=== PATIENT | male | born 1995 | race Caucasian/White ===

== ENCOUNTER 2021-08-17 01:15 | Emergency (ER) | payer MEDICAID ==
[~2021-08-17] VITALS: Ht 185.4 cm; Wt 90.7 kg
[2021-08-17 01:17] VITALS: BP 156/80
[2021-08-17] MEDS ORDERED: CEPH-588 PO (04:56)
[2021-08-17 05:02] VITALS: BP 114/49
== END 2021-08-17 05:03 | disposition home or self-care (01) ==
LOC: MED 01:15
DX: S80.211A Abrasion, right knee, initial encounter (principal); S09.90XA Unspecified injury of head, initial encounter; L03.115 Cellulitis of right lower limb; Z79.899 Other long term (current) drug therapy; Y04.2XXA Assault by strike against or bumped into by another person, initial encounter; Y93.89 Activity, other specified; Y92.511 Restaurant or cafe as the place of occurrence of the external cause; Y99.8 Other external cause status
CPT/HCPCS: 70450; 70486; 99284

== ENCOUNTER 2021-08-17 22:47 | Emergency (ER) | payer MEDICAID ==
[~2021-08-17 22:47] MED LIST: CEPH-588 PO
== END 2021-08-17 22:59 | disposition home or self-care (01) ==
LOC: MED 22:47
DX: Z02.89 Encounter for other administrative examinations (principal); Z79.899 Other long term (current) drug therapy
CPT/HCPCS: 99281